=== PATIENT | female | born 1940 | race Caucasian/White ===

== ENCOUNTER → 2016-11-15 | Outpatient (CLI) | payer MEDICARE, BC ==
[2015-05-02 10:45] VITALS: BP 99/52
[~2016-11-15] MED LIST: ACYC400T PO; ASPI81TA44 PO; CLON0.5T3 PO; ESTR0.5T PO; FERR325T58 PO; MULT-245 PO; OMEG300C PO
--- NOTE | 2016-11-16 08:42 | RAD ---
DATE: 11/15/2016 EXAM: DIGITAL SCREEN BILAT W/CAD HISTORY: Screening COMPARISON: 09/21/2015 This study was interpreted with the benefit of Computerized Aided Detection (CAD). FINDINGS: Breast Density: SCATTERED The breast parenchyma shows scattered fibroglandular densities. Breast parenchyma level B. There has been little change in the appearance of the breasts compared to the previous exam IMPRESSION: Benign findings BI-RADS CATEGORY: 2 BENIGN FINDING(S) RECOMMENDED FOLLOW-UP: 12M 12 MONTH FOLLOW-UP PQRS compliance statement: Patient information was entered into a reminder system with a target due date 11/15/2017 for the next mammogram. Mammography is a sensitive method for finding small breast cancers, but it does not detect them all and is not a substitute for careful clinical examination. A negative mammogram does not negate a clinically suspicious finding and should not result in delay in biopsying a clinically suspicious abnormality. "Our facility is accredited by the [employer] Mammography [employer]."
== END | disposition home or self-care (01) ==
LOC: MAMMO 15:29
PROVIDERS: ATTEND Nurse Practitioner Family
DX: Z12.31 Encounter for screening mammogram for malignant neoplasm of breast (principal)
CPT/HCPCS: G0202; 77067

== ENCOUNTER 2018-05-30 19:37 | Emergency (ER) | payer MEDICARE, BC ==
[~2018-05-30] VITALS: Ht 160 cm; Wt 45.4 kg
[2018-05-30 19:37] VITALS: BP 137/46
[~2018-05-30 19:37] MED LIST changes: -ASPI81TA44 PO; +ASPI81TA59 PO; +CLON0.5T11 PO; -CLON0.5T3 PO
--- NOTE | 2018-05-30 19:41 | ED.ADGEN ---
Past History Past Medical History: No Pertinent History Past Surgical History: Hysterectomy Alcohol Use: Rarely Drug Use: None Adult General Chief Complaint Chief Complaint " My daughter 's dog "Tomasa.". jumped up on me.. and torn the skin off my arm..."... I have very thin skin" HPI HPI Patient is a 77 year old female who presents with laceration avulsion of skin to Lt. forearm. Pt. has 8 x 4 cm injury. Most of the skin has been completely removed. Distal neurovascular intact. No other injury reported. Patient does not remember her last tetanus. Patient is right-hand dominant. No history immunosuppression. No history of travel. No history of specific ill contacts. Patient dog was not being aggressively but playful. Review of Systems Review of Systems Constitutional: Denies fever or chills [] Eyes: Denies change in visual acuity, redness, or eye pain [] HENT: Denies nasal congestion or sore throat [] Respiratory: Denies cough or shortness of breath [] Cardiovascular: No additional information not addressed in HPI [] GI: Denies abdominal pain, nausea, vomiting, bloody stools or diarrhea [] : Denies dysuria or hematuria [] Musculoskeletal: Denies back pain or joint pain [] Integument: []complains of skin avulsion left forearm Neurologic: Denies headache, focal weakness or sensory changes [] Endocrine: Denies polyuria or polydipsia [] All other systems were reviewed and found to be within normal limits, except as documented in this note. Family History Family History Noncontributory Current Medications Current Medications Current Medications Medications (Trade) Dose Ordered Sig/Jaleel Start Time Stop Time Status Last Admin Dose Admin Acetaminophen (Tylenol) 1,000 mg 1X ONCE 05/30/18 20:45 05/30/18 20:46 DC Bacitracin (Bacitracin Topical Pkt) 1 pkt 1X ONCE 05/30/18 20:45 05/30/18 20:46 DC 05/30/18 20:59 1 PKT Diphtheria/ Tetanus/Acell Pertussis (Boostrix) 0.5 ml ONCE ONCE 05/30/18 20:45 05/30/18 20:46 DC 05/30/18 21:00 0.5 ML Allergies Allergies Allergies Coded Allergies Type Severity Reaction Last Updated Verified Penicillins Allergy Intermediate Hives 05/01/15 No Tetracyclines Allergy Intermediate Hives 05/01/15 No erythromycin base Allergy Intermediate Hives 05/01/15 No naproxen Allergy Intermediate Hives 05/01/15 No Uncoded Allergies Type Severity Reaction Last Updated Verified Pt is DNR Adverse Reaction Mild Unknown 05/06/15 Physical Exam Physical Exam Constitutional: Moderately acute distress, non-toxic appearance. [] HENT: Normocephalic, atraumatic, bilateral external ears normal, oropharynx moist, no oral exudates, nose normal. [] Eyes: PERRLA, EOMI, conjunctiva normal, no discharge. [] Glasses. Neck: Normal range of motion, no tenderness, supple, no stridor. [] Cardiovascular:Heart rate regular rhythm, no murmur [] Lungs & Thorax: Bilateral breath sounds equal at apex auscultation [] Abdomen: Bowel sounds normal, soft, no tenderness, no masses, no pulsatile masses. [] Old surgery scar. Skin: Warm, dry, no erythema, no rash. Except []Left forearm and abrasion avulsion Back: No tenderness, no CVA tenderness. [] Extremities: No tenderness, no cyanosis, no clubbing, ROM intact, no edema. [] Mild arthritic changes Neurologic: Alert and oriented X 3, normal motor function, normal sensory function, no focal deficits noted. [] Psychologic: Affect anxious, judgement normal, mood normal. [] Current Patient Data Vital Signs Vital Signs Date Time Temp Pulse Resp B/P (MAP) Pulse Ox O2 Delivery O2 Flow Rate FiO2 05/30/18 19:37 97.1 77 16 98 Room Air EKG EKG [] Radiology/Procedures Radiology/Procedures [] Course & Med Decision Making Course & Med Decision Making Pertinent Labs and Imaging studies reviewed. (See chart for details) Wound care- Wound washed with surgical soap and water. Bacitracin antibiotic ointment ointment applied to wound with gauze dressing. Patient keep wound clean and dry. Patient apply Polysporin 4 times a day. Patient follow-up primary care. Patient return if any concerns. Tylenol or ibuprofen for pain.[] Final Impression Final Impression 1. Avulsion skin injury to Lt forearm[] 4 x8 cm Devora Disclaimer Devora Disclaimer This electronic medical record was generated, in whole or in part, using a voice recognition dictation system. Discharge Summary Visit Information Final Diagnosis Problems Medical Problems: (1) Avulsion, skin Status: Acute Brief Hospital Course Allergies Allergies Coded Allergies Type Severity Reaction Last Updated Verified Penicillins Allergy Intermediate Hives 05/01/15 No Tetracyclines Allergy Intermediate Hives 05/01/15 No erythromycin base Allergy Intermediate Hives 05/01/15 No naproxen Allergy Intermediate Hives 05/01/15 No Uncoded Allergies Type Severity Reaction Last Updated Verified Pt is DNR Adverse Reaction Mild Unknown 05/06/15 Vital Signs Vital Signs Date Time Temp Pulse Resp B/P (MAP) Pulse Ox O2 Delivery O2 Flow Rate FiO2 05/30/18 19:37 97.1 77 16 98 Room Air Brief Hospital Course Ms. Evans is a 77 old female who presented with skin avulsion to Lt forearm by her dog "Tomasa". Discharge Information Condition at Discharge: Improved, Stable Disposition/Orders: D/C to Home Dischare Medications Current Medications Diphtheria/ Tetanus/Acell Pertussis (Boostrix) 0.5 ml ONCE ONCE VAX IM Last administered on 05/30/18at 21:00; Admin Dose 0.5 ML; Start 05/30/18 at 20:45; Stop 05/30/18 at 20:46; Status DC Bacitracin (Bacitracin Topical Pkt) 1 pkt 1X ONCE TP Last administered on 05/30/18at 20:59; Admin Dose 1 PKT; Start 05/30/18 at 20:45; Stop 05/30/18 at 20:46; Status DC Acetaminophen (Tylenol) 1,000 mg 1X ONCE PO ; Start 05/30/18 at 20:45; Stop 05/30/18 at 20:46; Status DC Active Scripts Active Children's Aspirin (Aspirin) 81 Mg Tab.chew 81 Mg PO DAILY Reported Clonazepam 0.5 Mg Tablet 0.5 Mg PO QHS Discharge Summary Visit Information Final Diagnosis Problems Medical Problems: (1) Avulsion, skin Status: Acute Brief Hospital Course Allergies Allergies Coded Allergies Type Severity Reaction Last Updated Verified Penicillins Allergy Intermediate Hives 05/01/15 No Tetracyclines Allergy Intermediate Hives 05/01/15 No erythromycin base Allergy Intermediate Hives 05/01/15 No naproxen Allergy Intermediate Hives 05/01/15 No Uncoded Allergies Type Severity Reaction Last Updated Verified Pt is DNR Adverse Reaction Mild Unknown 05/06/15 Vital Signs Vital Signs Date Time Temp Pulse Resp B/P (MAP) Pulse Ox O2 Delivery O2 Flow Rate FiO2 05/30/18 19:37 97.1 77 16 98 Room Air Brief Hospital Course Ms. Evans is a 77 old [sex] who presented with [ ] Discharge Information Dischare Medications Current Medications Diphtheria/ Tetanus/Acell Pertussis (Boostrix) 0.5 ml ONCE ONCE VAX IM Last administered on 05/30/18at 21:00; Admin Dose 0.5 ML; Start 05/30/18 at 20:45; Stop 05/30/18 at 20:46; Status DC Bacitracin (Bacitracin Topical Pkt) 1 pkt 1X ONCE TP Last administered on 05/30/18at 20:59; Admin Dose 1 PKT; Start 05/30/18 at 20:45; Stop 05/30/18 at 20:46; Status DC Acetaminophen (Tylenol) 1,000 mg 1X ONCE PO ; Start 05/30/18 at 20:45; Stop 05/30/18 at 20:46; Status DC Active Scripts Active Children's Aspirin (Aspirin) 81 Mg Tab.chew 81 Mg PO DAILY Reported Clonazepam 0.5 Mg Tablet 0.5 Mg PO QHS Dragon Disclaimer This chart was dictated in whole or in part using Voice Recognition software in a busy, high-work load, and often noisy Emergency Department environment. It may contain unintended and wholly unrecognized errors or omissions. Dragon Disclaimer This chart was dictated in whole or in part using Voice Recognition software in a busy, high-work load, and often noisy Emergency Department environment. It may contain unintended and wholly unrecognized errors or omissions. MATT INFANTE MD May 30, 2018 19:40
[2018-05-30] MEDS ORDERED: BACITRACIN ZINC TOPICAL OINT PACKET. TP ONE (20:45)
[2018-05-30] MEDS: ACETAMINOPHEN 500 MG TABLET PO ONE ×2 (20:45→20:59)
[2018-05-30] MEDS ORDERED: DIPHTH,PERTUSS(ACELL),TET TOX 0.5 ML DISP.SYRIN. VAX IM ONE (20:45)
== END 2018-05-30 21:05 | disposition home or self-care (01) ==
LOC: ER 19:42
DX: S50.812A Abrasion of left forearm, initial encounter (principal); Z88.0 Allergy status to penicillin; Z88.1 Allergy status to other antibiotic agents; Z88.6 Allergy status to analgesic agent; W54.0XXA Bitten by dog, initial encounter; Y93.89 Activity, other specified; Y92.89 Other specified places as the place of occurrence of the external cause; Y99.8 Other external cause status
CPT/HCPCS: 90471; 90715; 99283-25

== ENCOUNTER 2019-01-28 14:56 | Emergency (ER) | payer MEDICARE, BC ==
[~2019-01-28] VITALS: Ht 160 cm; Wt 47.2 kg
[~2019-01-28 14:56] MED LIST changes: -CLON0.5T11 PO; +CLON0.5T4 PO
[2019-01-28] MEDS ORDERED: ONDANSETRON PF 4 MG/2 ML VIAL. IVP ONE (15:15)
[2019-01-28] MEDS: MORPHINE SULFATE 2 MG/ML DISP.SYRIN. IV/SQ PRN ×3 (15:20→16:35)
--- NOTE | 2019-01-28 15:25 | PHYS DOC ---
Past History Past Medical History: Kidney Stones Past Surgical History: Hysterectomy Smoking: Non-smoker Alcohol Use: Rarely Drug Use: None Adult General Chief Complaint Chief Complaint: BACK PAIN OR INJURY HPI HPI Patient is a 78-year-old female presents complaining of right flank pain that started 2-3 hours prior to arrival. Similar to previous kidney stone discomfort. She reports she was diagnosed with multiple stones in her kidneys when evaluated by a urologist over the summer. She has had one episode of vomiting. No blood in the emesis. No relief with ibuprofen. No blood in the urine. No fever. No dysuria, urgency, or frequency. No radiation of the discomfort. Discomfort is moderate to severe. Nothing makes it better or worse.[] Review of Systems Review of Systems Constitutional: Denies fever or chills [] Eyes: Denies change in visual acuity, redness, or eye pain [] HENT: Denies nasal congestion or sore throat [] Respiratory: Denies cough or shortness of breath [] Cardiovascular: No chest pain or palpitations[] GI: Denies abdominal pain, bloody stools or diarrhea [] : Denies dysuria or hematuria [] Musculoskeletal: Denies midline back pain or joint pain, see history of present illness [] Integument: Denies rash or skin lesions [] Neurologic: Denies headache, focal weakness or sensory changes [] Endocrine: Denies polyuria or polydipsia [] All other systems were reviewed and found to be within normal limits, except as documented in this note. Current Medications Current Medications Current Medications Medications (Trade) Dose Ordered Sig/Jaleel Start Time Stop Time Status Last Admin Dose Admin Ketorolac Tromethamine (Toradol 30mg Vial) 15 mg 1X ONCE 01/28/19 15:15 01/28/19 15:16 UNV Morphine Sulfate (Morphine 2mg Syringe) 2 mg PRN Q15MIN PRN 01/28/19 15:15 01/29/19 15:14 UNV Ondansetron HCl (Zofran) 4 mg 1X ONCE 01/28/19 15:15 01/28/19 15:16 UNV Allergies Allergies Allergies Coded Allergies Type Severity Reaction Last Updated Verified Penicillins Allergy Intermediate Hives 05/01/15 No Tetracyclines Allergy Intermediate Hives 05/01/15 No erythromycin base Allergy Intermediate Hives 05/01/15 No naproxen Allergy Intermediate Hives 05/01/15 No Uncoded Allergies Type Severity Reaction Last Updated Verified Pt is DNR Adverse Reaction Mild Unknown 05/06/15 Physical Exam Physical Exam Constitutional: Well developed, well nourished, no acute distress, non-toxic appearance. [] HENT: Normocephalic, atraumatic, bilateral external ears normal, oropharynx moist, no oral exudates, nose normal. [] Eyes: PERRLA, EOMI, conjunctiva normal, no discharge. [] Neck: Normal range of motion, no tenderness, supple, no stridor. [] Cardiovascular:Heart rate regular rhythm, no murmur [] Lungs & Thorax: Bilateral breath sounds clear to auscultation [] Abdomen: Bowel sounds normal, soft, no tenderness, no masses, no pulsatile masses. [] Skin: Warm, dry, no erythema, no rash. [] Back: No tenderness, no CVA tenderness. [] Extremities: No tenderness, no cyanosis, no clubbing, ROM intact, no edema. [] Neurologic: Alert and oriented X 3, normal motor function, normal sensory function, no focal deficits noted. [] Psychologic: Affect normal, judgement normal, mood normal. [] Current Patient Data Vital Signs Vital Signs Date Time Temp Pulse Resp B/P (MAP) Pulse Ox O2 Delivery O2 Flow Rate FiO2 01/28/19 15:14 97.8 66 16 124/74 (91) 98 Room Air EKG EKG [] Radiology/Procedures Radiology/Procedures PROCEDURE: CT ABDOMEN PELVIS WO CONTRAST EXAM: CT Abdomen and Pelvis without IV contrast CLINICAL HISTORY: Severe right flank pain, nausea. COMPARISON: None TECHNIQUE: Helical CT of the abdomen and pelvis without intravenous contrast. Axial, coronal and sagittal reformatted images were generated. PQRS compliance statement - One or more of the following individualized dose reduction techniques were utilized for this study: 1. Automated exposure control 2. Adjustment of the mA and/or kV according to patient size 3. Use of iterative reconstruction technique FINDINGS: Lack of intravenous contrast limits evaluation of solid organs, vasculature, and lymph nodes. Lower chest: Linear opacities lung bases likely scarring/atelectasis. No lobar consolidation. Abdomen and Pelvis: No focal liver lesion. Gallbladder is normal. No biliary ductal dilatation. Pancreas is unremarkable. Spleen is unremarkable. Adrenal glands are normal. Multiple bilateral renal calculi are seen. The largest is in the interpolar right kidney measuring 7 mm. In addition there is a 4 mm calculus at the right ureterovesicular junction resulting in moderate right hydronephrosis and hydroureter. Left extrarenal pelvis and parapelvic cysts are seen. No left hydronephrosis or hydroureter. Bladder is decompressed and otherwise unremarkable. Moderate colonic stool content is seen. A few colonic diverticula are seen. No evidence for bowel obstruction. Right adnexal prominence possibly residual ovary. Small fat-containing. Local hernia. Aortic calcifications are seen. Changes of prior ventral mesh repair is seen within the pelvis. Bones: Degenerative changes of the spine are seen, most prominent at L3-4 and L4-5. Decreased bone mineral density. No definite aggressive osseous lesion is seen. IMPRESSION: 4 mm calculus within the distal right ureter, at the ureterovesicular junction, resulting in moderate right hydronephrosis and hydroureter. Additional multiple bilateral nonobstructing renal calculi are seen the largest measuring up to 7 mm.[] Course & Med Decision Making Course & Med Decision Making Pertinent Labs and Imaging studies reviewed. (See chart for details) Emergency department course: Patient arrived, was placed in bed, and tolerated exam well. She was transported to and from radiology without any complications. IV access was established and she was given pain medicines and antiemetics. She was feeling much better. Findings and plan were discussed with the patient who voiced understanding. Medical decision making: Patient with a 4 mm right UVJ ureteral stone. No evidence of inadequate pain control. No evidence of intractable nausea and vomiting. Believe the urine sample to be contaminated, no evidence of UTI or infected stone at this time.[] Dragon Disclaimer Dragon Disclaimer This electronic medical record was generated, in whole or in part, using a voice recognition dictation system. Departure Departure: Impression: Primary Impression: Right kidney stone Disposition: 01 HOME, SELF-CARE Condition: IMPROVED Referrals: FADIA SARGENT (PCP) Follow-up in 2 days Patient Instructions: Diet for Kidney Stones, Kidney Stones Additional Instructions: Drink plenty of fluids. Follow-up with your regular doctor in 2 days. Strain your urine to catch the stone and bring the stone to your primary care physician. Some stones are prevented by certain dietary changes. Return to the ER if you develop a fever of more than 101, worsening discomfort, unable to tolerate liquids, or any other concerns. Scripts Tamsulosin Hcl (FLOMAX) 0.4 Mg Cap.er.24h 0.4 MG PO HS for KIDNEY STONE for 10 Days, #10 CAP.SR Prov: JIMY MITCHELL DO 01/28/19 Ondansetron Hcl (ZOFRAN) 4 Mg Tablet 1 TAB PO Q6HRS for nausea or vomiting, #20 TAB Prov: JIMY MITCHELL DO 01/28/19 Hydrocodone Bit/Acetaminophen (NORCO 5-325 TABLET) 1 Each Tablet 1 TAB PO Q4-6HRS for severe pain, #20 TAB Prov: JIMY MITCHELL DO 01/28/19 Meloxicam (MELOXICAM) 7.5 Mg Tablet 7.5 MG PO DAILY for PAIN, #20 TAB Prov: JIMY MITCHELL DO 01/28/19 JIMY MITCHELL DO Jan 28, 2019 15:25
[2019-01-28] MEDS ORDERED: KETOROLAC 15 MG/ML VIAL. IVP ONE (15:30)
[2019-01-28] MEDS ORDERED: IV NORMAL SALINE 1,000ML 1,000 ML IV ONE (15:30)
[2019-01-28 15:40] LABS: BASO # 0.1 x10^3/uL (0.0-0.2); BASO % 1 % (0-3); EOS # 0.1 x10^3/uL (0.0-0.7); EOS % 2 % (0-3); HEMATOCRIT 43.7 % (36.0-47.0); HEMOGLOBIN 14.4 g/dL (12.0-15.5); LYMPH # 1.9 x10^3/uL (1.0-4.8); LYMPH % 30 % (24-48); MEAN CORPUSCULAR HEMOGLOBIN 31 pg (25-35); MEAN CORPUSCULAR HGB CONC 33 g/dL (31-37); MEAN CORPUSCULAR VOLUME 94 fL (79-100); MONO # 0.6 x10^3/uL (0.0-1.1); MONO % 9 % (0-9); NEUT # 3.7 x10^3uL (1.8-7.7); NEUT % 58 % (31-73); PLATELET COUNT 149 x10^3/uL (140-400); RED BLOOD COUNT 4.64 x10^6/uL (3.50-5.40); WHITE BLOOD COUNT 6.3 x10^3/uL (4.0-11.0)
[2019-01-28 15:47] LABS: CALCIUM 8.5 mg/dL (8.5-10.1); GFR 53.5; POTASSIUM 4.5 mmol/L (3.5-5.1)
[2019-01-28 15:53] LABS: ALBUMIN 3.4 g/dL (3.4-5.0); ALBUMIN/GLOBULIN RATIO 1.1 (1.0-1.7); TOTAL BILIRUBIN 0.4 mg/dL (0.2-1.0); TOTAL PROTEIN 6.4 g/dL (6.4-8.2)
--- NOTE | 2019-01-28 16:02 | RAD ---
EXAM: CT Abdomen and Pelvis without IV contrast CLINICAL HISTORY: Severe right flank pain, nausea. COMPARISON: None TECHNIQUE: Helical CT of the abdomen and pelvis without intravenous contrast. Axial, coronal and sagittal reformatted images were generated. PQRS compliance statement - One or more of the following individualized dose reduction techniques were utilized for this study: 1. Automated exposure control 2. Adjustment of the mA and/or kV according to patient size 3. Use of iterative reconstruction technique FINDINGS: Lack of intravenous contrast limits evaluation of solid organs, vasculature, and lymph nodes. Lower chest: Linear opacities lung bases likely scarring/atelectasis. No lobar consolidation. Abdomen and Pelvis: No focal liver lesion. Gallbladder is normal. No biliary ductal dilatation. Pancreas is unremarkable. Spleen is unremarkable. Adrenal glands are normal. Multiple bilateral renal calculi are seen. The largest is in the interpolar right kidney measuring 7 mm. In addition there is a 4 mm calculus at the right ureterovesicular junction resulting in moderate right hydronephrosis and hydroureter. Left extrarenal pelvis and parapelvic cysts are seen. No left hydronephrosis or hydroureter. Bladder is decompressed and otherwise unremarkable. Moderate colonic stool content is seen. A few colonic diverticula are seen. No evidence for bowel obstruction. Right adnexal prominence possibly residual ovary. Small fat-containing. Local hernia. Aortic calcifications are seen. Changes of prior ventral mesh repair is seen within the pelvis. Bones: Degenerative changes of the spine are seen, most prominent at L3-4 and L4-5. Decreased bone mineral density. No definite aggressive osseous lesion is seen. IMPRESSION: 4 mm calculus within the distal right ureter, at the ureterovesicular junction, resulting in moderate right hydronephrosis and hydroureter. Additional multiple bilateral nonobstructing renal calculi are seen the largest measuring up to 7 mm. Electronically signed by: Ravindra Soliz MD (01/28/2019 3:59 PM) [id number]
[2019-01-28] MEDS ORDERED: TAMSULOSIN 0.4 MG CAP.ER.24H. PO ONE (16:15)
[2019-01-28 17:06] LABS: BACTERIA,URINE MANY /HPF (0-FEW); BILIRUBIN,URINE NEG (NEG); CLARITY,URINE CLEAR; COLOR,URINE YELLOW; GLUCOSE,URINE NEG (NEG); NITRITE,URINE NEG (NEG); SQUAMOUS EPITHELIAL CELL,UR MANY /LPF; UROBILINOGEN,URINE 0.2 mg/dL (0.2 mg/dL)
[2019-01-28] MEDS ORDERED: MELO7.5T29 PO (17:10)
[2019-01-28] MEDS ORDERED: ONDA4TAB7 PO (17:10)
[2019-01-28] MEDS ORDERED: TAMS0.4C97 PO (17:10)
[2019-01-28] MEDS ORDERED: HYDR-3165 PO (17:10)
[2019-01-28] MEDS ORDERED: MORPHINE SULFATE 2 MG/ML DISP.SYRIN. IV ONE (17:30)
[2019-01-28 17:38] VITALS: BP 132/67
== END 2019-01-28 17:35 | disposition home or self-care (01) ==
LOC: ER 14:56
DX: N13.2 Hydronephrosis with renal and ureteral calculous obstruction (principal); K57.30 Diverticulosis of large intestine without perforation or abscess without bleeding; Z87.442 Personal history of urinary calculi; Z90.710 Acquired absence of both cervix and uterus; Z88.0 Allergy status to penicillin; Z88.1 Allergy status to other antibiotic agents; Z88.8 Allergy status to other drugs, medicaments and biological substances
CPT/HCPCS: 36415; 74176; 80053; 81001; 83690; 85025; 87086; 96361; 96374; 96375; 96376; 99285; J1885; J2270; J2405; J7030

== ENCOUNTER → 2019-06-26 | Outpatient (CLI) | payer MEDICARE, BC ==
[~2019-06-26] MED LIST changes: +HYDR-3165 PO; +MELO7.5T29 PO; +ONDA4TAB7 PO; +TAMS0.4C97 PO
--- NOTE | 2019-06-26 15:34 | RAD ---
Renal ultrasound and pelvic ultrasound HISTORY: Pelvic pressure. History of kidney stones. Renal ultrasound: IVC is patent. The aorta is nonaneurysmal. Right kidney: Measures 10.0 x 4.8 x 4.3 cm. Hypoechoic lesion with posterior acoustic enhancement measures 28 x 27 x 26 mm, most compatible with a cyst. No evidence of hydronephrosis. Left kidney: Measures 10.7 x 4.6 x 3.9 cm. Left hydronephrosis. No definite renal lesion or echogenic calculus. Urinary bladder: Prevoid volume measures 81 cc. Bilateral ureteric jets are identified. IMPRESSION: 1. Hypoechoic right renal lesion most compatible with a 2.8 cm cyst 2. Left hydronephrosis of uncertain etiology. Note that bilateral ureteric jets are documented. Pelvic ultrasound: Transabdominal scanning was performed. Patient reports a partial hysterectomy about 50 years ago. No sonographic abnormality is seen in the region of the vaginal cuff. No free fluid is identified. The right and left ovary are not visualized due to obscuration by bowel gas. IMPRESSION: 1. Post hysterectomy. 2. Nonvisualized ovaries due to obscuration by bowel gas. 3. No evidence of mass or free fluid by ultrasound. Electronically signed by: Jb Benson MD (06/26/2019 3:32 PM) [id number]
== END | disposition home or self-care (01) ==
LOC: US 13:46
PROVIDERS: ATTEND Physician Assistant Medical
DX: N13.30 Unspecified hydronephrosis (principal); Z90.710 Acquired absence of both cervix and uterus; Z87.442 Personal history of urinary calculi
CPT/HCPCS: 76770; 76856

== ENCOUNTER 2019-07-12 19:24 | Emergency (ER) | payer MEDICARE, BC ==
[~2019-07-12] VITALS: Ht 170.2 cm; Wt 67.0 kg
--- NOTE | 2019-07-12 19:35 | PHYS DOC ---
Past History Past Medical History: Anxiety, Arthritis, Constipation, GERD, Kidney Stones, UTI Past Surgical History: Hysterectomy Smoking: Non-smoker Alcohol Use: Rarely Drug Use: None General Adult HPI: HPI: ".. This feel s like a really bad kidney stone.. stabbing back pain.. I am vomiting... This is just like my previous kidney stone...they thought may be I had a UTI and they started me on Bactrim..but I am sure this is really a stone..." Patient is a 78 year old female who presents with above hx and complaints severe right flank pain that radiates to her groin. Patient has had multiple stones in the past. Patient has had 5 kidney stones and required hospital evaluation or a ED visit. Also has had urinary tract infections. Patient follows with [facility], who recently started her on Bactrim for possible UTI. Patient denies any problems with defecation. No complaints of dysuria. No history of trauma. Patient has taken Pyridium in the event that this was a UTI. Patient currently rating her pain is 10 out of 10. Pain so severe that she vomited while waiting to be seen. Patient states her previous kidney stones have been calcium. Has followed with a urologist in the past at [facility] however he is no longer at [facility] and does not have a new urologist. She does have a past medical history of GERD, anxiety, angina, hypertension. and arthritis. Review of Systems: Review of Systems: Constitutional: Denies fever or chills Eyes: Denies change in visual acuity HENT: Denies nasal congestion or sore throat Respiratory: Denies cough or shortness of breath Cardiovascular: Denies chest pain or edema GI: Denies abdominal pain, nausea, vomiting, bloody stools or diarrhea : Denies dysuria Musculoskeletal: Denies back pain or joint pain Integument: Denies rash Neurologic: Denies headache, focal weakness or sensory changes Endocrine: Denies polyuria or polydipsia Lymphatic: Denies swollen glands Psychiatric: Denies depression or anxiety Heart Score: Risk Factors: Risk Factors: DM, Current or recent (<one month) smoker, HTN, HLP, family history of CAD, obesity. Risk Scores: Score 0 - 3: 2.5% MACE over next 6 weeks - Discharge Home Score 4 - 6: 20.3% MACE over next 6 weeks - Admit for Clinical Observation Score 7 - 10: 72.7% MACE over next 6 weeks - Early Invasive Strategies Family History: Family History: There is family history of cervical cancer with sister father had coronary artery disease. Current Medications: Current Meds: See nursing for home meds Allergies: Allergies: Allergies Coded Allergies Type Severity Reaction Last Updated Verified Penicillins Allergy Intermediate Hives 05/01/15 No Tetracyclines Allergy Intermediate Hives 05/01/15 No erythromycin base Allergy Intermediate Hives 05/01/15 No naproxen Allergy Intermediate Hives 05/01/15 No Uncoded Allergies Type Severity Reaction Last Updated Verified Pt is DNR Adverse Reaction Mild Unknown 05/06/15 Physical Exam: PE: Constitutional: in acute distress, non-toxic appearance. [] HENT: Normocephalic, atraumatic, bilateral external ears normal, oropharynx moist, no oral exudates, nose normal. [] Eyes: PERRLA, EOMI, conjunctiva normal, no discharge. [] Neck: Normal range of motion, no tenderness, supple, no stridor. [] Cardiovascular: Bradycardia heart rate regular rhythm, no murmur [] Lungs & Thorax: Bilateral breath sounds equal apex on auscultation [] Abdomen: Bowel sounds decreased l, soft, no tenderness, no masses, no pulsatile masses. Old surgical scars. Right flank tenderness that radiates to groin on the right. Pain is exacerbated with percussions. Did vomit in the emergency department. No rebound pain Skin: Warm, dry, no erythema, no rash. Poor turgor Back: No tenderness, right CVA tenderness. [] Extremities: No tenderness, no cyanosis, no clubbing, ROM intact, no edema. Arthritic changes. No psoas sign. Neurologic: Alert and oriented X 3, normal motor function, normal sensory function, no focal deficits noted. [] Psychologic: Affect anxious , judgement normal, tearful because of pain. EKG: EKG: My interpretation of EKG shows a sinus bradycardia at 56 bpm. There is some nonspecific contour changes in the anterior lateral leads but no findings of acute STEMI with contralateral changes. [] Radiology/Procedures: Radiology/Procedures: [address] [address] IMAGING REPORT Signed PATIENT: NINA HELM ACCOUNT: [id number] : 1940 LOCATION: ER AGE: 78 SEX: F EXAM STATUS: REG ER ORD. PHYSICIAN: MATT INFANTE MD REASON: pain, N/V PROCEDURE: ACUTE ABDOMEN SERIES Acute Abdominal Series: 07/12/2019 7:39 PM Reason for study: Pain, nausea and vomiting. Comparison studies: CT abdomen/pelvis 01/28/2019. Technique: Frontal view of the chest was obtained along with supine and upright views of the abdomen. Findings: Nonobstructive bowel gas pattern. No air fluid levels or free air. The lungs are clear without acute consolidative opacity. No pleural effusion or pneumothorax. The cardiac and mediastinal contours are normal. 5 mm calculus is identified at the expected region of the right ureterovesicular junction. Faint calcifications within the renal shadows is limited one of the calculi measuring between the Visualized osseous structures are intact. Hernia repair versus changes associated IMPRESSION: 1. Possible 5 mm calculus is suspected at the right ureterovesicular junction. Correlate with patient's pain. Nonobstructive bilateral renal calculi are present. 2. Nonobstructed bowel gas pattern. 3. No acute cardiopulmonary findings. Electronically signed by: Stevo Roberson MD (07/12/2019 8:18 PM) [facility] DICTATED AND SIGNED BY: STEVO ROBERSON MD DATE: 07/12/192017 CC: MATT INFANTE MD; FADIA SARGENT ~ [][place] [id number] IMAGING REPORT Signed PATIENT: NINA HELM ACCOUNT: [id number] : 1940 LOCATION: ER AGE: 78 SEX: F EXAM STATUS: REG ER ORD. PHYSICIAN: MATT INFANTE MD REASON: hx renal stones PROCEDURE: CT ABDOMEN PELVIS WO CONTRAST Exam: CT of abdomen and pelvis without contrast INDICATION: Renal stones TECHNIQUE: Sequential axial images through the abdomen and pelvis obtained without IV contrast. Sagittal and coronal reformatted images were reconstructed from the axial data and reviewed. Comparisons: None FINDINGS: Heart size is normal. No pericardial effusion. Visualized lung bases are clear. No pleural effusion. Evaluation of the solid organs is limited secondary to noncontrast technique. Liver, spleen, pancreas, gallbladder and adrenals are unremarkable. There is moderate right-sided hydronephrosis and hydroureter with a 7 mm calculus at the distal right ureter. Several other nonobstructing renal calculi are noted bilaterally. There is a exophytic hypoattenuating cystic lesion at the upper pole of the right kidney incompletely characterized on this study. Bladder is decompressed not well evaluated. Uterus is absent. No abnormal adnexal mass. Diverticulosis at the sigmoid colon without evidence of acute diverticulitis. The remainder of the large and small bowel are unremarkable. Appendix is not identified. No free intra-abdominal air or fluid. No obstruction. Abdominal aorta has a normal course and caliber. No enlarged abdominal lymph nodes are identified. No suspicious osseous lesions or acute fractures. IMPRESSION: 1. A 7 mm calculus at the distal right ureter with moderate right-sided hydronephrosis and hydroureter. 2. Several nonobstructing renal calculi bilaterally. 3. A incompletely visualized hypodensity attenuating cystic lesion at the right kidney. This appears similar when compared to the prior renal ultrasound. Exposure: One or more of the following in the visualized dose reduction techniques were utilized for this examination: 1. Automated exposure control 2. Adjustment of the MA and/or KV according to patient size 3. Use of iterative of reconstructive technique Electronically signed by: Raffi Lebron MD (07/12/2019 9:02 PM) [id number] DICTATED AND SIGNED BY: RAFFI LEBRON MD DATE: 07/12/192101 CC: MATT INFANTE MD; FADIA SARGENT ~ Course & Med Decision Making: Course & Med Decision Making Pertinent Labs and Imaging studies reviewed. (See chart for details) If actively vomiting take Zofran 8 mg up to 4 times a day. Push fluids. Save stone if passed. Tylenol ibuprofen for pain. For marked pain may take Vicoprofen. Patient to continue her Bactrim as previous directed. Patient not take Flomax at night. Patient warned of Flomax may cause dizziness. If continued pain/intractable pain follow-up with a hospital that has urology. Return if any concerns. Impression: 1. Distal 7mm stone- with hydronephrosis and hydroureter Rt. 2. Hypomagnesium 1.7 3. Elevated BUN /Creat 23/1.4 [] Dragon Disclaimer: Dragon Disclaimer: This electronic medical record was generated, in whole or in part, using a voice recognition dictation system. Departure Departure: Disposition: 01 HOME/RESIDENCE PRIOR TO ADM Condition: STABLE Referrals: FADIA SARGENT (PCP) Scripts Tamsulosin Hcl (FLOMAX) 0.4 Mg Cap.er.24h 0.4 MG PO at night for kidneystone, #30 CAP.SR Prov: MATT INFANTE MD 07/12/19 Ondansetron Hcl (ZOFRAN) 8 Mg Tablet 8 MG PO QIDPRN PRN for active nausea and vomiting, #30 BOTTLE Prov: MATT INFANTE MD 07/12/19 Hydrocodone/Ibuprofen (HYDROCODONE-IBUPROFEN 7.5-200 ) 1 Each Tablet 1 TAB PO PRN Q6HRS PRN for PAIN, #30 TAB 0 Refills Prov: MATT INFANTE MD 07/12/19 Justification of Admission: Justification of Admission: Justification of Admission Dx: N/A Dragon Disclaimer This chart was dictated in whole or in part using Voice Recognition software in a busy, high-work load, and often noisy Emergency Department environment. It may contain unintended and wholly unrecognized errors or omissions. MATT INFANTE MD Jul 12, 2019 19:35
[2019-07-12 19:56] VITALS: BP 166/59
[2019-07-12] MEDS ORDERED: IV RINGERS SOLUTION,LACTATED 1,000 ML IV SCH (20:00)
--- NOTE | 2019-07-12 20:21 | RAD ---
Acute Abdominal Series: 07/12/2019 7:39 PM Reason for study: Pain, nausea and vomiting. Comparison studies: CT abdomen/pelvis 01/28/2019. Technique: Frontal view of the chest was obtained along with supine and upright views of the abdomen. Findings: Nonobstructive bowel gas pattern. No air fluid levels or free air. The lungs are clear without acute consolidative opacity. No pleural effusion or pneumothorax. The cardiac and mediastinal contours are normal. 5 mm calculus is identified at the expected region of the right ureterovesicular junction. Faint calcifications within the renal shadows is limited one of the calculi measuring between the Visualized osseous structures are intact. Hernia repair versus changes associated IMPRESSION: 1. Possible 5 mm calculus is suspected at the right ureterovesicular junction. Correlate with patient's pain. Nonobstructive bilateral renal calculi are present. 2. Nonobstructed bowel gas pattern. 3. No acute cardiopulmonary findings. Electronically signed by: Gisela Rodriguez MD (07/12/2019 8:18 PM) AMANDA
[2019-07-12 20:47] LABS: COLOR,URINE ORANGE
[2019-07-12 20:48] LABS: CLARITY,URINE TURBID
[2019-07-12 20:51] LABS: BARBITURATES NEG (NEG); BENZODIAZEPINES NEG (NEG); CANNABINOIDS NEG (NEG); COCAINE NEG (NEG); METHADONE NEG (NEG); OPIATES POS (NEG); PHENCYCLIDINE NEG (NEG)
[2019-07-12] MEDS ORDERED: MORPHINE SULFATE 10 MG/ML SYRINGE. SQ ONE ×2 (21:00→22:00)
[2019-07-12] MEDS ORDERED: ONDANSETRON PF 4 MG/2 ML VIAL. IVP ONE (21:00)
[2019-07-12] MEDS ORDERED: TAMSULOSIN 0.4 MG CAP.ER.24H. PO ONE (21:00)
[2019-07-12] MEDS ORDERED: KETOROLAC 15 MG/ML VIAL. IVP ONE (21:00)
[2019-07-12 21:05] LABS: CALCIUM 9.3 mg/dL (8.5-10.1); CREATININE 1.4 mg/dL (0.6-1.0); GFR 36.3; POTASSIUM 3.9 mmol/L (3.5-5.1)
--- NOTE | 2019-07-12 21:05 | RAD ---
Exam: CT of abdomen and pelvis without contrast INDICATION: Renal stones TECHNIQUE: Sequential axial images through the abdomen and pelvis obtained without IV contrast. Sagittal and coronal reformatted images were reconstructed from the axial data and reviewed. Comparisons: None FINDINGS: Heart size is normal. No pericardial effusion. Visualized lung bases are clear. No pleural effusion. Evaluation of the solid organs is limited secondary to noncontrast technique. Liver, spleen, pancreas, gallbladder and adrenals are unremarkable. There is moderate right-sided hydronephrosis and hydroureter with a 7 mm calculus at the distal right ureter. Several other nonobstructing renal calculi are noted bilaterally. There is a exophytic hypoattenuating cystic lesion at the upper pole of the right kidney incompletely characterized on this study. Bladder is decompressed not well evaluated. Uterus is absent. No abnormal adnexal mass. Diverticulosis at the sigmoid colon without evidence of acute diverticulitis. The remainder of the large and small bowel are unremarkable. Appendix is not identified. No free intra-abdominal air or fluid. No obstruction. Abdominal aorta has a normal course and caliber. No enlarged abdominal lymph nodes are identified. No suspicious osseous lesions or acute fractures. IMPRESSION: 1. A 7 mm calculus at the distal right ureter with moderate right-sided hydronephrosis and hydroureter. 2. Several nonobstructing renal calculi bilaterally. 3. A incompletely visualized hypodensity attenuating cystic lesion at the right kidney. This appears similar when compared to the prior renal ultrasound. Exposure: One or more of the following in the visualized dose reduction techniques were utilized for this examination: 1. Automated exposure control 2. Adjustment of the MA and/or KV according to patient size 3. Use of iterative of reconstructive technique Electronically signed by: Raffi Sigala MD (07/12/2019 9:02 PM) [id number]
[2019-07-12 21:08] LABS: BACTERIA,URINE FEW /HPF (0-FEW); SQUAMOUS EPITHELIAL CELL,UR FEW /LPF; WBC,URINE RARE /HPF (0-4)
[2019-07-12 21:14] LABS: AMPHETAMINE/METHAMPHETAMINE NEG (NEG)
[2019-07-12 21:14] LABS: ALBUMIN 3.8 g/dL (3.4-5.0); DIRECT BILIRUBIN 0.2 mg/dL (0.0-0.2); MAGNESIUM 1.7 mg/dL (1.8-2.4); TOTAL BILIRUBIN 0.7 mg/dL (0.2-1.0); TOTAL PROTEIN 7.2 g/dL (6.4-8.2)
[2019-07-12 21:22] LABS: BASO % 1 % (0-3); EOS % 0 % (0-3); HEMATOCRIT 43.4 % (36.0-47.0); HEMOGLOBIN 14.7 g/dL (12.0-15.5); LYMPH % 11 % (24-48); MEAN CORPUSCULAR HEMOGLOBIN 31 pg (25-35); MEAN CORPUSCULAR HGB CONC 34 g/dL (31-37); MEAN CORPUSCULAR VOLUME 93 fL (79-100); MONO # 0.4 x10^3/uL (0.0-1.1); MONO % 5 % (0-9); NEUT # 7.6 x10^3uL (1.8-7.7); NEUT % 83 % (31-73); PLATELET COUNT 154 x10^3/uL (140-400); RED BLOOD COUNT 4.67 x10^6/uL (3.50-5.40); RED CELL DISTRIBUTION WIDTH 14.3 % (11.5-14.5); WHITE BLOOD COUNT 9.2 x10^3/uL (4.0-11.0)
[2019-07-12] MEDS ORDERED: HYDR-1179 PO (21:44)
[2019-07-12] MEDS ORDERED: TAMS0.4C97 PO (21:44)
[2019-07-12] MEDS ORDERED: ONDA8TAB9 PO (21:44)
[2019-07-12] MEDS ORDERED: MAGNESIUM HYDROXIDE 2,400 MG/30 ML ORAL.SUSP. PO ONE (22:00)
--- NOTE | 2019-07-14 07:19 | EKG ---
[address] [address] Test Date: 2019-07-12 Test Time: 20:12:27 Pat Name: NINA HELM Department: Room: Gender: Head Still Operator: : 1940 Requested By: MATT INFANTE Order Number: [id number] Reading MD: Quentin Arndt MD Measurements Intervals [place] Rate: P: PA: QRS: QRSD: T: QT: QTc: Interpretive Statements SR NON-SPECIFIC ST/T CHANGES Electronically Signed On 07-17-2019 11:48:35 CDT by Quentin Arndt MD
== END 2019-07-12 22:25 | disposition home or self-care (01) ==
LOC: ER 19:24
DX: N13.2 Hydronephrosis with renal and ureteral calculous obstruction (principal); E83.42 Hypomagnesemia; R79.89 Other specified abnormal findings of blood chemistry; K21.9 Gastro-esophageal reflux disease without esophagitis; I10 Essential (primary) hypertension; M19.90 Unspecified osteoarthritis, unspecified site; Z87.442 Personal history of urinary calculi; Z87.440 Personal history of urinary (tract) infections; Z90.710 Acquired absence of both cervix and uterus; Z88.0 Allergy status to penicillin; Z88.1 Allergy status to other antibiotic agents; Z88.8 Allergy status to other drugs, medicaments and biological substances
CPT/HCPCS: 36415; 74022; 74176; 80048; 80076; 80307; 81001; 82550; 83690; 83735; 83880; 84443; 84484; 85025; 85610; 85730; 86705; 86709; 86803; 87340; 93005; 96365; 96372; 96375; 99285; J1885; J1956; J2270; J2405; J7120

== ENCOUNTER 2020-12-23 12:06 | Emergency (ER) | payer MEDICARE, BC ==
[~2020-12-23] VITALS: Ht 170.2 cm; Wt 67.0 kg
[~2020-12-23 12:06] MED LIST changes: -CIPR500T94 PO; -ONDA4TAB12 PO; -OXYC-325 PO
[2020-12-23] MEDS ORDERED: ONDANSETRON PF 4 MG/2 ML VIAL. IVP ONE ×2 (12:30→14:30)
[2020-12-23] MEDS ORDERED: MORPHINE SULFATE 4 MG/ML DISP.SYRIN. IV ONE ×2 (12:30→13:30)
[2020-12-23] MEDS ORDERED: IV NORMAL SALINE 1,000ML 1,000 ML IV ONE (12:30)
--- NOTE | 2020-12-23 12:32 | PHYS DOC ---
Past History Past Medical History: Anxiety, Arthritis, Constipation, GERD, Kidney Stones, UTI Past Surgical History: Hysterectomy Smoking: Non-smoker Alcohol Use: None Drug Use: None Adult General Chief Complaint Chief Complaint: FLANK PAIN HPI HPI Patient is a 80-year-old female patient with history of anxiety, arthritis, high cholesterol, acid reflux, kidney stones, who presents to the ED today complaining of a sharp 8 out of 10 intermittent right flank pain, symptoms began today after having a transvaginal pelvic ultrasound. Patient denies any hematuria, urgency frequency or dysuria. Denies any nausea, vomiting. Denies any fever. States sitting up relieves the pain and laying down exacerbates the pain. Requesting morphine for pain. Review of Systems Review of Systems Constitutional: Denies fever or chills [] Eyes: Denies change in visual acuity, redness, or eye pain [] HENT: Denies nasal congestion or sore throat [] Respiratory: Denies cough or shortness of breath [] Cardiovascular: No additional information not addressed in HPI [] GI: Denies abdominal pain, nausea, vomiting, bloody stools or diarrhea [] : Reports right flank pain. Denies dysuria or hematuria [] Musculoskeletal: Denies back pain or joint pain [] Integument: Denies rash or skin lesions [] Neurologic: Denies headache, focal weakness or sensory changes [] All other systems were reviewed and found to be within normal limits, except as documented in this note. Current Medications Current Medications Current Medications Medications (Trade) Dose Ordered Sig/Jaleel Start Time Stop Time Status Last Admin Dose Admin Morphine Sulfate (Morphine 4mg Syringe) 4 mg 1X ONCE 12/23/20 12:30 12/23/20 12:31 Ondansetron HCl (Zofran) 4 mg 1X ONCE 12/23/20 12:30 12/23/20 12:31 UNV Sodium Chloride 1,000 ml @ 1,000 mls/hr 1X ONCE 12/23/20 12:30 12/23/20 13:29 Allergies Allergies Allergies Coded Allergies Type Severity Reaction Last Updated Verified Penicillins Allergy Intermediate Hives 05/01/15 No Tetracyclines Allergy Intermediate Hives 05/01/15 No erythromycin base Allergy Intermediate Hives 05/01/15 No naproxen Allergy Intermediate Hives 05/01/15 No Uncoded Allergies Type Severity Reaction Last Updated Verified Pt is DNR Adverse Reaction Mild Unknown 05/06/15 Physical Exam Physical Exam Constitutional: Well developed, well nourished, no acute distress, non-toxic appearance. [] HENT: Normocephalic, atraumatic, bilateral external ears normal, oropharynx moist, no oral exudates, nose normal. [] Eyes: PERRLA, EOMI, conjunctiva normal, no discharge. [] Neck: Normal range of motion, no tenderness, supple, no stridor. [] Cardiovascular:Heart rate regular rhythm, no murmur [] Lungs & Thorax: Bilateral breath sounds clear to auscultation [] Abdomen: Bowel sounds normal, soft, no tenderness, no masses, no pulsatile masses. [] Skin: Warm, dry, no erythema, no rash. [] Back: No tenderness, mild right CVA tenderness. [] Extremities: No tenderness, no cyanosis, no clubbing, ROM intact, no edema. [] Neurologic: Alert and oriented X 3, normal motor function, normal sensory function, no focal deficits noted. [] Psychologic: Affect normal, judgement normal, mood normal. [] Current Patient Data Vital Signs Vital Signs Date Time Temp Pulse Resp B/P (MAP) Pulse Ox O2 Delivery O2 Flow Rate FiO2 12/23/20 12:14 97.9 76 16 179/73 (108) Room Air EKG EKG [] Radiology/Procedures Radiology/Procedures []PROCEDURE: CT ABDOMEN PELVIS WO CONTRAST EXAM: Abdomen and pelvis CT without intravenous contrast. HISTORY: Flank pain. TECHNIQUE: Computed tomographic images of the abdomen and pelvis were obtained without contrast. Multiplanar reformatting was performed. *One or more of the following individualized dose reduction techniques were utilized for this examination: 1. Automated exposure control. 2. Adjustment of the mA and/or kV according to patient size. 3. Use of iterative reconstruction technique. COMPARISON: 07/12/2019. FINDINGS: Evaluation of the lower thorax demonstrates right middle lobe atelectasis or scarring. There is no infiltrate or pleural effusion. No suspicious hepatic lesion is seen. The gallbladder, pancreas, spleen and adrenal glands are unremarkable. There is severe right hydronephrosis and hydroureter extending to a 6 mm stone within the distal ureter slightly proximal to the uterovesical junction. There is mild left pelvocaliectasis without kika hydronephrosis. There is a 3.0 cm right renal cyst. There are multiple nonobstructing renal stones measuring up to 3 mm bilaterally. There is lateral renal cortical scarring and focal thinning. There is no appendicitis. There is no bowel obstruction. There is distal colonic diverticulosis. There is no definite radiculitis. The bladder is nearly empty. The uterus is absent. The ovaries are unremarkable. There is aortic atherosclerosis. No pathologically enlarged lymph node is seen. There is postoperative change involving the ventral pelvic wall. There is degenerative change involving the spine. There is no acute or suspicious osseous finding. IMPRESSION: 1. Severe right hydronephrosis and hydroureter secondary to an obstructing 6 mm stone within the distal ureter solid proximal to the ureterovesical junction. There are multiple additional nonobstructive right renal stones measuring up to 3 mm. 2. Left renal pelvicaliectasis. There are multiple left renal stones measuring up to 3 mm. No shifting stone is seen. 3. Colonic diverticulosis. 4. 3.0 cm right renal cyst. Follow-up is not routinely performed for simple cysts. Electronically signed by: Elizabteh Ibarra MD (12/23/2020 1:06 PM) [id number] DICTATED AND SIGNED BY: ELIZABETH IBARRA MD DATE: 12/23/20 1252 CC: [address] ENGINEER; FADIA SARGENT PA ~MTH0 0 Heart Score C/O Chest Pain: N/A Risk Factors: Risk Factors: DM, Current or recent (<one month) smoker, HTN, HLP, family history of CAD, obesity. Risk Scores: Risk Factors: DM, Current or recent (<one month) smoker, HTN, HLP, family history of CAD, obesity. Course & Med Decision Making Course & Med Decision Making Pertinent Labs and Imaging studies reviewed. (See chart for details) This is a 80-year-old female patient with history of kidney stones presenting today complaining of right flank pain, symptoms began today after having a transvaginal ultrasound. CBC, CMP-no acute findings, UA noted for moderate amount of blood, no nitrites, no leukocytes, 5-[address] of the abdomen pelvis with severe right hydronephrosis and hydroureter secondary to an obstructing 6 mm stone within the distal ureter solid proximal to the ureterovesical junction. Multiple additional nonobstructive right renal stones measuring up to 3 mm. Left renal pelvicaliectasis. There are multiple left renal stones measuring up to 3 mm. No shifting stone is seen. Colonic diverticulosis. 3.0 cm right renal cyst. Follow-up is not routinely performed for simple cysts. Patient was given Flomax, Zofran and morphine in the ED with good relief, she is allergic to naproxen hence cannot take Toradol. She is interested in going home pain is under control. She was instructed to follow-up with her urologist. Provided return precautions and discharged in stable condition Dragbrijesh Disclaimer Dragon Disclaimer This electronic medical record was generated, in whole or in part, using a voice recognition dictation system. Departure Departure: Impression: Primary Impression: Kidney stone on right side Additional Impression: Hydronephrosis, right Disposition: 01 HOME / SELF CARE / HOMELESS Condition: STABLE Referrals: FADIA SARGENT (PCP) follow up with your urologist as soon as you can Patient Instructions: Kidney Stones Additional Instructions: You were evaluated in the emergency room and noted to have kidney stones on the right side. We encourage you to push fluids. Please follow-up with your urologist as soon as you can. Take the rest of your prescribed medications as ordered. Scripts Ondansetron (ONDANSETRON ODT) 4 Mg Tab.rapdis 1 TAB PO PRN Q6-8HRS, #16 TAB Prov: SOLO CEDILLO SERENE 12/23/20 Oxycodone HCl/Acetaminophen (Percocet 5-325 mg Tablet) 1 Each Tablet 1 TAB PO Q6HRS PRN for PAIN MDD 2 Tablet(s), #20 TAB 0 Refills Prov: MAMADOUSOLO Barbara CAST 12/23/20 Ciprofloxacin Hcl (CIPRO) 500 Mg Tablet 1 TAB PO BID for 7 Days, #14 TAB 0 Refills Prov: SOLO CEDILLO SERENE 12/23/20 Tamsulosin Hcl (FLOMAX) 0.4 Mg Cap.er.24h 1 CAP PO DAILY, #7 CAP 11 Refills Prov: SOLO CEDILLO Barbara CAST 12/23/20 Problem Qualifiers SOLO CEDILLO SERENE Dec 23, 2020 12:31
[2020-12-23 12:49] LABS: BASO # 0.1 x10^3/uL (0.0-0.2); BASO % 1 % (0-3); EOS # 0.1 x10^3/uL (0.0-0.7); EOS % 1 % (0-3); HEMATOCRIT 41.2 % (36.0-47.0); HEMOGLOBIN 13.9 g/dL (12.0-15.5); LYMPH # 1.9 x10^3/uL (1.0-4.8); LYMPH % 24 % (24-48); MEAN CORPUSCULAR HEMOGLOBIN 32 pg (25-35); MEAN CORPUSCULAR HGB CONC 34 g/dL (31-37); MEAN CORPUSCULAR VOLUME 96 fL (79-100); MONO # 0.6 x10^3/uL (0.0-1.1); MONO % 7 % (0-9); NEUT # 5.4 x10^3uL (1.8-7.7); NEUT % 67 % (31-73); PLATELET COUNT 172 x10^3/uL (140-400); RED CELL DISTRIBUTION WIDTH 12.9 % (11.5-14.5)
[2020-12-23 12:51] LABS: CALCIUM 9.2 mg/dL (8.5-10.1); CREATININE 0.9 mg/dL (0.6-1.0); GFR 60.1
[2020-12-23 12:58] LABS: ALBUMIN 3.6 g/dL (3.4-5.0); ALBUMIN/GLOBULIN RATIO 1.1 (1.0-1.7); TOTAL BILIRUBIN 0.8 mg/dL (0.2-1.0)
--- NOTE | 2020-12-23 13:09 | RAD ---
EXAM: Abdomen and pelvis CT without intravenous contrast. HISTORY: Flank pain. TECHNIQUE: Computed tomographic images of the abdomen and pelvis were obtained without contrast. Mult iplanar reformatting was performed. *One or more of the following individualized dose reduction techniques were utilized for this examina tion: 1. Automated exposure control. 2. Adjustment of the mA and/or kV according to patient size. 3. Use of iterative reconstruction technique. COMPARISON: 07/12/2019. FINDINGS: Evaluation of the lower thorax demonstrates right middle lobe atelectasis or scarring. Ther e is no infiltrate or pleural effusion. No suspicious hepatic lesion is seen. The gallbladder, pancre as, spleen and adrenal glands are unremarkable. There is severe right hydronephrosis and hydroureter extending to a 6 mm stone within the distal uret er slightly proximal to the uterovesical junction. There is mild left pelvocaliectasis without kika hydronephrosis. There is a 3.0 cm right renal cyst. There are multiple nonobstructing renal stones me asuring up to 3 mm bilaterally. There is lateral renal cortical scarring and focal thinning. There is no appendicitis. There is no bowel obstruction. There is distal colonic diverticulosis. Ther e is no definite radiculitis. The bladder is nearly empty. The uterus is absent. The ovaries are unre markable. There is aortic atherosclerosis. No pathologically enlarged lymph node is seen. There is po stoperative change involving the ventral pelvic wall. There is degenerative change involving the spin e. There is no acute or suspicious osseous finding. IMPRESSION: 1. Severe right hydronephrosis and hydroureter secondary to an obstructing 6 mm stone within the dist al ureter solid proximal to the ureterovesical junction. There are multiple additional nonobstructive right renal stones measuring up to 3 mm. 2. Left renal pelvicaliectasis. There are multiple left renal stones measuring up to 3 mm. No shiftin g stone is seen. 3. Colonic diverticulosis. 4. 3.0 cm right renal cyst. Follow-up is not routinely performed for simple cysts. Electronically signed by: Elizabeth Rudolph MD (12/23/2020 1:06 PM) [id number]
[2020-12-23] MEDS ORDERED: TAMSULOSIN 0.4 MG CAP.ER.24H. PO ONE (13:30)
[2020-12-23 13:51] VITALS: BP 142/59
[2020-12-23 13:56] LABS: BACTERIA,URINE FEW /HPF (0-FEW); BILIRUBIN,URINE NEG (NEG); CLARITY,URINE CLEAR; COLOR,URINE STRAW; GLUCOSE,URINE NEG (NEG); NITRITE,URINE NEG (NEG); SQUAMOUS EPITHELIAL CELL,UR FEW /LPF; UROBILINOGEN,URINE 0.2 mg/dL (0.2 mg/dL)
[2020-12-23] MEDS ORDERED: OXYC-325 PO (14:20)
[2020-12-23] MEDS ORDERED: TAMS0.4C97 PO (14:20)
[2020-12-23] MEDS ORDERED: ONDA4TAB12 PO (14:20)
[2020-12-23] MEDS ORDERED: CIPR500T94 PO (14:20)
[2020-12-23] MEDS ORDERED: KETOROLAC 15 MG/ML VIAL. IVP ONE (14:30)
[2020-12-23] MEDS ORDERED: HYDROmorphone PF 1 MG/ML DISP.SYRIN IVP ONE (14:30)
== END 2020-12-23 14:40 | disposition home or self-care (01) ==
LOC: ER 12:06
DX: N20.0 Calculus of kidney (principal); N13.30 Unspecified hydronephrosis; Z88.0 Allergy status to penicillin; Z88.1 Allergy status to other antibiotic agents; Z87.898 Personal history of other specified conditions; Z90.710 Acquired absence of both cervix and uterus
CPT/HCPCS: 36415; 74176; 80053; 81001; 85025; 87086; 96361; 96374; 96375; 96376; 99285; J1170; J1885; J2270; J2405; J7030

== ENCOUNTER → 2020-12-23 | Outpatient (CLI) | payer MEDICARE, BC ==
[~2020-12-23] MED LIST changes: +ACYC-12 PO; -ACYC400T PO; +CIPR500T94 PO; +HYDR-1179 PO; +ONDA4TAB12 PO; +ONDA8TAB9 PO; +OXYC-325 PO
--- NOTE | 2020-12-23 10:45 | RAD ---
EXAM: Pelvic sonogram. HISTORY: Pain. TECHNIQUE: Transabdominal sonographic imaging of the pelvis was performed. COMPARISON: None. FINDINGS: The uterus is surgically absent. The ovaries are not visualized. No adnexal mass or cyst se en. There is no pelvic free fluid. IMPRESSION: 1. Surgically absent uterus. 2. Nonvisualization of the ovaries. These may be obscured due to location or surrounding bowel. They appear present unremarkable on a CT performed 07/12/2019. 3. No acute sonographic finding. Electronically signed by: Elizabeth Rudolph MD (12/23/2020 10:43 AM) [id number]
== END ==
LOC: US 10:07
PROVIDERS: ATTEND Physician Assistant Medical
DX: R10.2 Pelvic and perineal pain (principal); Z90.710 Acquired absence of both cervix and uterus
CPT/HCPCS: 76856